=== PATIENT | female | born 1985 | race Caucasian/White ===

== ENCOUNTER 2021-06-15 11:33 | Emergency (ER) | payer SELFPAY ==
[~2021-06-15] VITALS: Ht 165.1 cm; Wt 51.0 kg
[~2021-06-15 11:33] MED LIST: CIME200T6 PO; CIME400T PO; HYDR1TAB13 PO; IBUP-1222 PO; PREN-13 PO; SUCR1TAB33 PO
[2021-06-15 11:43] VITALS: BP 114/70
--- NOTE | 2021-06-15 15:50 | NUR ---
NO ANS X 1
--- NOTE | 2021-06-15 16:03 | NUR ---
NO ANS X 2
--- NOTE | 2021-06-15 16:11 | NUR ---
NO ANS X 3
== END 2021-06-15 16:12 | disposition left against medical advice (07) ==
LOC: ED 16:00
DX: N89.8 Other specified noninflammatory disorders of vagina (principal)
CPT/HCPCS: 99281